=== PATIENT | male | born 1975 | race Caucasian/White ===

== ENCOUNTER 2016-07-03 00:50 | Emergency (ER) | payer OTHER ==
[~2016-07-03] VITALS: Ht 182.9 cm; Wt 81.6 kg
[2016-07-03 00:56] VITALS: BP 122/74
--- NOTE | 2016-07-03 04:20 | NUR ---
PATIENT PRESENTS TO ED WITH RT KNEE [id number] . PT STATES PAIN IS ONLY PRESENT ON AMBULATION. PT DENIES MEDICAL HISTORY . DENIES N/V/D; SKIN IS PINK/WARM/DRY; AAOX4 WITH EVEN AND STEADY GAIT; LUNGS CLEAR BL; HR EVEN AND REGULAR; PT DENIES ANY FEVER, CP, SOB, OR COUGH AT THIS TIME; PATIENT STATES PAIN OF 8/10 AT THIS TIME; VSS; PATIENT POSITIONED FOR COMFORT; HOB ELEVATED; BEDRAILS UP X2; BED DOWN. ER MD MADE AWARE OF PT STATUS.
--- NOTE | 2016-07-03 04:25 | NUR ---
MEDICATIONS ADMINISTERED PER ERMBasim HANNAH ORDERS. PLEASE SEE PHYSICIAN ORDER SHEET.
[2016-07-03] MEDS ORDERED: HYDROmorphone 1 MG/ML AMP ONE (04:32)
[2016-07-03] MEDS ORDERED: ONDANSETRON 4 MG/2 ML VIAL ONE (04:32)
[2016-07-03 05:04] VITALS: BP 119/75
--- NOTE | 2016-07-03 05:05 | NUR ---
Patient discharged with v/s stable. Written and verbal after care instructions given and explained. Patient alert, oriented and verbalized understanding of instructions. Ambulatory with steady gait. All questions addressed prior to discharge. ID band removed. Patient advised to follow up with PMD. Rx of MOTRIN AND TRAMADOL given. Patient educated on indication of medication including possible reaction and side effects. Opportunity to ask questions provided and answered.
== END 2016-07-03 05:05 | disposition home or self-care (01) ==
LOC: MED 00:50
PROC: 3E033GC Introduction of Other Therapeutic Substance into Peripheral Vein, Percutaneous Approach (ICD-10-PCS; principal; 2016-07-03)
DX: M25.561 Pain in right knee (principal)
CPT/HCPCS: 73562; 96372; 99284; J1170; J2405